=== PATIENT | male | born 1935 | race Caucasian/White ===

== ENCOUNTER 2017-07-26 11:24 | Emergency (ER) | payer MEDICARE, OTHER ==
--- NOTE | 2017-07-26 11:56 | ED.PDOC ---
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 TAKES XARELTO; PT IS UNCERTAIN WHY. HE MENTIONS HAD CABG; STROKE 3 YR AGO. Occurred: just prior to arrival Severity: moderate Pain Location: pelvis - L HIP Method of Injury: fall Improving Factors: nothing Worsening Factors: nothing Loss of Consciousness: no loss of consciousness Associated Symptoms (Fall): denies symptoms Allergies/Adverse Reactions: Allergies NO KNOWN ALLERGY Allergy (Verified 07/26/17 11:38) Home Medications: Ambulatory Orders Aspirin [Aspirin Adult Low Dose] 81 mg PO DAILY 07/26/17 Atorvastatin Calcium [Lipitor] 40 mg PO DAILY 07/26/17 Ezetimibe [Zetia] 10 mg PO DAILY 07/26/17 Levothyroxine Sodium 25 mcg PO DAILY 07/26/17 Metoprolol Succinate [Metoprolol Succinate ER] 25 mg PO DAILY 07/26/17 Pantoprazole Sodium 40 mg PO DAILY 07/26/17 Rivaroxaban [Xarelto] 20 mg PO DAILY 07/26/17 Telmisartan [Micardis] 20 mg PO DAILY 07/26/17 Review of Systems - Review of Systems Constitutional: States: no symptoms reported EENTM: States: no symptoms reported Respiratory: States: no symptoms reported Cardiology: States: no symptoms reported Gastrointestinal/Abdominal: States: no symptoms reported Genitourinary: States: no symptoms reported Musculoskeletal: States: other - L HIP PAIN Skin: States: no symptoms reported Neurological: States: no symptoms reported. Denies: headache Endocrine: States: no symptoms reported Hematologic/Lymphatic: States: no symptoms reported All other Systems: Reviewed and Negative Past Medical History (General) - Patient Medical History Hx Stroke: Yes Hx Congestive Heart Failure: No Hx Diabetes: No Hx MRSA: Yes MRSA Source:: Blood Surgical History: coronary bypass surgery - Vaccination History Hx Tetanus, Diphtheria Vaccination: Yes Hx Influenza Vaccination: Yes Hx Pneumococcal Vaccination: Yes - Social History Hx Tobacco Use: No Family Medical History - Family History Father Family History: Unknown Living Status: Physical Exam - Physical Exam General Appearance: Other - AWAKE, APPEARS YOUNGER THAN HIS STATED AGE. Head Injury: no evidence of injury Eye Exam: bilateral normal ENT Exam: hearing grossly normal, no evidence of ENT injury, no dental injury Neck Exam: non-tender, full range of motion - C-COLLAR IS IN PLACE THUS DEFERRED EXAM UNTIL AFTER CT. , normal inspection Cardiovascular/Respiratory: regular rate, rhythm, no M/R/G, no JVD, normal breath sounds, no respiratory distress Gastrointestinal/Abdominal: normal bowel sounds, non tender, soft, no organomegaly, no pulsatile mass Back Exam: no CVA tenderness, no vertebral tenderness, other - L HIP TTP ON PELVIC PRESSURE EXAM. Extremity Exam: no evidence of injury, normal range of motion Neurologic: solution mixer II-XII nml as tested, no motor/sensory deficits, oriented x 3 - OX3 AND ANSWERS QUESTIONS APPROPRIATELY, BUT SLOWLY (DELAYED RESPONSE). Skin Exam: normal color, other - SUPERFICIAL SKIN ABRASIONS ACROSS BACK. - Mike Coma Score Best Eye Response ([place]): (3) open to voice Best Verbal Response ([place]): (5) oriented Best Motor Response ([place]): (6) obeys commands Mike Total: 14 Progress - Progress Progress: 07/26/17 12:50 ONCE PT RETURNED FROM CT, I LEARNED HAD A CARDIAC HX. THUS ALONG WITH HIS DELAYED IN ANSWERING QUESTIONS (MILD AMS) I ORDERED EKG FOR COMPLETENESS, THOUGH PT DENIES CHEST PAIN. EKG SHOWS [address] ELEVATION IN LEADS II, III, AVF , V6, THUS MEETS CO CRITERIA. THUS I AM CALLING [facility] FOR TRANSFER. CT HEAD AND NECK NEG. CT CHEST, ABD, PELVIS PENDING. L NONDISPLACED SUPERIOR PUBIC RAMUS FRX, PER PLAIN FILM. 07/26/17 12:[address] MARIE, ER PHYSICIAN [facility], AND EXPLAINED MY CONCERN OF CO. I AM TRANSFERRING TO [facility] FOR HIGHER LEVEL OF CARE. THANK YOU, DR. MARIE AND [facility]. CARDIAC ENZ ORDERED AND PENDING. PT STILL DENIES CHEST PAIN OR SOB. 07/26/17 13:06 CT CHEST, ABD, PELVIS NEG EXCEPT POS FRX L SUPERIOR AND INFERIOR PUBIC RAMI. Departure - Departure Clinical Impression: Myocardial infarction acute, Closed fracture of left pelvis, Altered mental status, Fall, Abrasion of skin Disposition: Transfer to Hospital Condition: Serious Diet: other - NPO Home Medications: Ambulatory Orders Aspirin [Aspirin Adult Low Dose] 81 mg PO DAILY 07/26/17 Atorvastatin Calcium [Lipitor] 40 mg PO DAILY 07/26/17 Ezetimibe [Zetia] 10 mg PO DAILY 07/26/17 Levothyroxine Sodium 25 mcg PO DAILY 07/26/17 Metoprolol Succinate [Metoprolol Succinate ER] 25 mg PO DAILY 07/26/17 Pantoprazole Sodium 40 mg PO DAILY 07/26/17 Rivaroxaban [Xarelto] 20 mg PO DAILY 07/26/17 Telmisartan [Micardis] 20 mg PO DAILY 07/26/17 Transfer to Outside Facility - Transfer Information Accepting Provider:: DR. MARIE, ER Accepting Facility: [facility] Reason for Transfer: specialized care not available - PELVIC FRACTURE. CONCERN FOR CO.
--- NOTE | 2017-07-26 12:35 | CT ---
EXAM DESCRIPTION: CT cervical spine CLINICAL HISTORY: 15 foot fall injury. Cervical spine pain COMPARISON: None Available. TECHNIQUE: Spiral CT with multiplanar reformatted images. This exam was performed according to our departmental dose-optimization program, which includes automated exposure control, adjustment of the mA and/or kV according to patient size and/or use of iterative reconstruction technique. FINDINGS: Arthrosis between the anterior arch of C1 and the dens. Surrounding ligament thickening and calcification. No advanced lateral atlantooccipital organoaxial arthrosis C2-3: Asymmetric severe left facet arthrosis and mild foraminal narrowing. No canal stenosis or right foraminal narrowing C3-4: Severe left and moderate right facet arthrosis. Grade 1 anterolisthesis C3 on C4 with mild canal narrowing. Moderate foraminal stenosis on the left and mild on the right C4-5: Moderate loss of disc height with disc osteophyte ridging flattening the ventral thecal sac. AP dimension of the canal 10 mm. Facet and uncovertebral arthrosis with severe right foraminal stenosis and mild left foraminal stenosis C5-6: Complete loss of disc height. Disc osteophyte ridging asymmetrically greater left paracentral. Flattening of the ventral thecal sac. AP dimension of the canal centrally is 10 mm and left paracentral 7 mm. Moderate left and severe right foraminal stenosis C6-7: Severe disc degeneration with disc osteophyte ridging leading to mild canal stenosis. AP dimension of the canal 9 mm. Moderate foraminal stenosis bilaterally. C7-T1: No canal or foraminal narrowing. Moderate left facet arthrosis. No fracture. No diagnostic paravertebral muscle abnormality. No mass lesion or adenopathy in the neck IMPRESSION: No fracture of the cervical spine Cervical spondylosis with multilevel foraminal stenosis Electronically signed by: Lake Blue MD 07/26/2017 12:34 PM CDT
--- NOTE | 2017-07-26 12:40 | CT ---
EXAM DESCRIPTION: CT head without contrast CLINICAL HISTORY: Fall injury. Trauma. Headache. COMPARISON: None. TECHNIQUE: Noncontrast spiral CT of the brain. This exam was performed according to our departmental dose-optimization program, which includes automated exposure control, adjustment of the mA and/or kV according to patient size and/or use of iterative reconstruction technique FINDINGS: Single image punctate focus of high density subcortical white matter left frontal lobe possibly sequela of remote infection, dystrophic calcification. Another possibility would be a small cavernoma. It is unlikely to represent punctate parenchymal hemorrhage There is no other evidence of intracranial hemorrhage, acute infarction or mass lesion Mild white matter disease, nonspecific likely chronic microvascular ischemia. Age-appropriate cerebral volume loss. Atherosclerotic vascular calcifications in the vertebral arteries and cavernous internal carotid arteries No calvarial or skull base fracture. No paranasal sinus or mastoid fluid IMPRESSION: No suspicion of acute intracranial trauma Electronically signed by: Lake Blue MD 07/26/2017 12:38 PM CDT
--- NOTE | 2017-07-26 12:42 | RAD ---
EXAM DESCRIPTION: Left hip, 2 views CLINICAL HISTORY: Fall injury. Hip pain FINDINGS/ IMPRESSION: No fracture of the proximal femur Nondisplaced fracture of the superior pubic ramus/anterior column junction left pelvis. No diagnostic inferior pubic ramus fracture identified Moderate osteoarthritis of the sacroiliac joints. Mild osteoarthritis with joint space narrowing. Lateral marginal osteophyte. Nonspherical anterior superior femoral head neck junction predisposing to femoroacetabular impingement Electronically signed by: Lake Blue MD 07/26/2017 12:40 PM CDT
--- NOTE | 2017-07-26 13:03 | CT ---
EXAM DESCRIPTION: CT abdomen and pelvis without contrast CLINICAL HISTORY: Fall injury. Trauma. Assess for intra-abdominal injury COMPARISON: None Available. TECHNIQUE: Spiral CT with multiplanar reformatted images. This exam was performed according to our departmental dose-optimization program, which includes automated exposure control, adjustment of the mA and/or kV according to patient size and/or use of iterative reconstruction technique. FINDINGS: Visualized lung bases are clear. Heart size is normal No abdominal visceral mass lesion to suggest metastatic disease or primary neoplasm No diagnostic abnormality of the gallbladder. No biliary duct dilation. No renal stone disease No mass lesion or inflammatory process seen in the stomach, small or large intestine. Numerous diverticula of the sigmoid and descending colon. No diverticulitis. No abnormality of the omentum, mesentery or retroperitoneum Radiation related seeds/fiducial markers in the prostate. No pelvic soft tissue mass lesion or free fluid Fracture of the left superior pubic ramus at the junction with anterior column acetabulum and fracture of the inferior pubic ramus. No significant offset of the superior pubic ramus. Approximate 5 mm offset inferior ramus. There is a small amount of extraperitoneal blood in the left hemipelvis No lumbar spine fracture No other pelvic fracture. No fracture of the proximal femora. Small amount of fluid, partially visualized in the right upper scrotum/inguinal ring IMPRESSION: Fracture of the left hemipelvis involving the superior pubic ramus/anterior column junction and the inferior pubic ramus. No soft tissue injury within the abdomen or pelvis Electronically signed by: Lake Blue MD 07/26/2017 1:01 PM CDT
--- NOTE | 2017-07-26 13:07 | CT ---
EXAM DESCRIPTION: CT chest without contrast CLINICAL HISTORY: Fall injury. Chest pain COMPARISON: None Available. TECHNIQUE: Spiral CT with multiplanar reformatted images. This exam was performed according to our departmental dose-optimization program, which includes automated exposure control, adjustment of the mA and/or kV according to patient size and/or use of iterative reconstruction technique. FINDINGS: Normal heart size. Coronary artery calcifications. Median sternotomy wires from prior cardiac surgery. Atherosclerotic aorta without aneurysm No mediastinal or hilar mass lesion or adenopathy No pulmonary edema, infiltrate or effusion. No pneumothorax No rib fracture. Degenerative changes are present in the spine. No thoracic spine fracture IMPRESSION: No traumatic injury of the chest No acute cardiopulmonary process Electronically signed by: Lake Blue MD 07/26/2017 1:06 PM CDT
[2017-07-26] MEDS ORDERED: HYDROmorphone HCL INJ 2 MG/ML VIAL IV ONE (13:27)
[2017-07-26 13:52] VITALS: BP 103/53; TEMP 97.1; O2SAT 97
== END 2017-07-26 13:52 | disposition short-term general hospital (02) ==
LOC: ER 11:24
DX: I21.3 ST elevation (STEMI) myocardial infarction of unspecified site (principal); S32.592A Other specified fracture of left pubis, initial encounter for closed fracture; S30.810A Abrasion of lower back and pelvis, initial encounter; R41.82 Altered mental status, unspecified; Z86.73 Personal history of transient ischemic attack (TIA), and cerebral infarction without residual deficits; Z95.1 Presence of aortocoronary bypass graft; Z79.01 Long term (current) use of anticoagulants; W17.89XA Other fall from one level to another, initial encounter; Y92.89 Other specified places as the place of occurrence of the external cause
CPT/HCPCS: 70450; 71250; 72125; 73502; 74176; 80053; 82550; 82553; 84484; 85025; 93005; J1170